=== PATIENT | male | born 1985 | race Caucasian/White ===

== ENCOUNTER → 2019-08-26 | Day surgery (SDC) | payer OTHER ==
[~2019-08-26] MED LIST: ACETAMINOPHEN 325 MG TABLET PO PRN; ALBUTEROL SULFATE 2.5 MG/3 ML NEBU. NEB PRN; ATROPINE 0.5 MG/5 ML DISP.SYRIN. IV PRN; IV RINGERS SOLUTION,LACTATED 1,000 ML IV SCH; ONDANSETRON PF 4 MG/2 ML VIAL. IV PRN; PHENOL ORAL SPRAY 177ML BOTTLE. MM PRN; PROPOFOL 40 ML IV ONE; diphenhydrAMINE 50 MG/ML VIAL IV PRN
[2019-08-26 15:25] VITALS: BP 111/72
--- NOTE | 2019-08-28 15:07 | PATHOLOGY ---
[facility] Accession Number: [id number] . 01 Material submitted: . PART A: small bowel - SMALL BOWEL PART B: stomach - GASTRIC PART C: esophagus - DISTAL ESOPHAGUS. Modifiers: distal . 01 Clinical history: . Celiac, R/O H. pylori, reflux . 02 Diagnosis: A. Small bowel biopsies: - No significant pathologic abnormalities. . B. Gastric biopsies: - Chronic gastritis, mild. . C. Esophageal biopsy, distal esophagus: - Esophagitis with eosinophils. See comment. . (JPM:tereso; 08/28/2019) [facility] [place] 1053 Local . 02 Comment: Sections of the small bowel biopsy reveal segments of duodenal and small intestine mucosa. Where best oriented, the mucosal villi show no sprue-like changes or significant inflammatory changes. . Sections of the gastric biopsy reveal segments of gastric antral/body transition mucosa showing congestion and mild chronic inflammation. A properly controlled immunoperoxidase stain for Helicobacter is negative for Helicobacter organisms. . Sections of the distal esophageal biopsy reveal mildly hyperplastic squamous esophageal mucosa. There are intraepithelial eosinophils. Most areas show only a few intraepithelial eosinophils per high power field. There is one focus showing approximately 20-25 intraepithelial eosinophils per high power field. The differential diagnosis of esophagitis with eosinophils includes reflux esophagitis, "pill esophagitis", and eosinophilic esophagitis. Correlate clinically. (JPM:tereso; 08/28/2019) . . Special stain performed: Immunoperoxidase stain for Helicobacter on B1 . 02 Electronically signed: . Nicolas Serrano MD, Pathologist NPI- [id number] . 01 Gross description: . A. The specimen is received in formalin, labeled "Milliard, Yannick", "small bowel". Received are multiple segments of pale yi-pink soft tissue, ranging in size from 0.1 cm to 0.2 cm. The specimen is entirely submitted in cassette A1. . B. The specimen is received in formalin, labeled "Yannick Calix", "gastric biopsy". Received are multiple segments of pale yi soft tissue ranging in size from 0.1 cm to 0.3 cm. The specimen is entirely submitted in cassette B1. . C. The specimen is received in formalin, labeled "Yannick Calix", "distal esophagus biopsy". Received is a single segment of pale white soft tissue measuring 0.3 cm. The specimen is entirely submitted in cassette C1.(SNA; 08/27/2019) [facility] 08/27/2019 1647 Local . 02 Pathologist provided ICD-10: K29.50, K20.9 . 02 CPT . 304801, 213278, 750899, [id number] Specimen Comment: A courtesy copy of this report has been sent to [phone], [phone] Specimen Comment: [id number] Specimen Comment: Report sent to / DR DICKERSON Performed at: 01 [facility] [address] [facility] [address], [place] [id number] MD Kang Hubbard MD Phone: [phone] Performed at: 02 [facility] [address] [place], [place] [id number] MD Nicolas Serrano MD Phone: [phone]
== END ==
LOC: SURG 12:46
PROVIDERS: ATTEND Emergency Medicine
DX: R10.13 Epigastric pain (principal); K29.50 Unspecified chronic gastritis without bleeding; K20.9 Esophagitis, unspecified
CPT/HCPCS: 43239; 88305; 88342; J2704; J7120